=== PATIENT | male | born 1945 | race Caucasian/White ===

== ENCOUNTER → 2024-08-23 09:31 | Outpatient (REF) | payer MEDICARE, OTHER, SELFPAY | LOC: RAD 09:31 | PROVIDERS: ATTENDING PHYSICIAN Student in an Organized Health Care Education/Training Program; FAMILY PHYSICIAN Family Medicine | DX: M79.643 Pain in unspecified hand (principal); M25.519 Pain in unspecified shoulder; M79.673 Pain in unspecified foot; M25.011 Hemarthrosis, right shoulder; M25.571 Pain in right ankle and joints of right foot; M25.572 Pain in left ankle and joints of left foot; M25.511 Pain in right shoulder | CPT/HCPCS: 76882 ==